=== PATIENT | male | born 1985 | race Caucasian/White ===

== ENCOUNTER → 2022-05-01 | Day surgery (SDC) | payer BC ==
[~2022-05-01] MED LIST: APRISO0.375 GM PO; FOLIC ACID 1 MG1 MG PO; IMURAN TAB 50 M50 MG PO; PREDNISONE10 MG PO; TYLENOL W/CODEIN1 E1 PO; VANCOMYCIN HCL125 MG PO
== END | disposition home or self-care (01) ==
LOC: OR 08:15
DX: K51.00 Ulcerative (chronic) pancolitis without complications (principal); K51.40 Inflammatory polyps of colon without complications; K51.511 Left sided colitis with rectal bleeding; K64.1 Second degree hemorrhoids; E66.9 Obesity, unspecified; Z68.28 Body mass index [BMI] 28.0-28.9, adult
CPT/HCPCS: J2704